=== PATIENT | male | born 1980 | race Caucasian/White ===

== ENCOUNTER 2017-04-15 01:25 | Emergency (ER) | payer SELFPAY ==
[~2017-04-15] VITALS: Ht 177.8 cm; Wt 93.0 kg
[2017-04-15 01:35] VITALS: BP 139/84
== END 2017-04-15 07:36 | disposition left against medical advice (07) ==
LOC: ER 01:25
DX: M54.9 Dorsalgia, unspecified (principal); Z53.21 Procedure and treatment not carried out due to patient leaving prior to being seen by health care provider